=== PATIENT | female | born 1960 ===

== ENCOUNTER 2025-05-29 13:03 | Outpatient (AMB) | payer OTHER, SELFPAY ==
--- NOTE | 2025-05-29 13:32 | MHC.OFFVIS ---
Vital Signs 05/29/25 13:33 Height 5 ft 3 in Weight 166 lb 6 oz BMI 29.5 BP 96/60 Blood Pressure Location Rt brachial Pulse 70 Pulse Source Pulse Oximeter Pulse Oximetry (%) 97 Oxygen Delivery Method Room Air Intake Visit Reasons: ENP - Fatigue Intake Note: Patient presents [employer] fatigue. Sleepiness and fatigue, snoring at night. No HX of sleep study. Online Affiliate Marketing Manager Required: Yes Online Affiliate Marketing Manager Language: Electrical Cad Technician Services: Online Affiliate Marketing Manager Present Online Affiliate Marketing Manager Name: Foster [id number] Information Interpreted: non-clinical & clinical Accompanied by: Self / Same As Patient Allergies hydroxyzine Allergy (Unknown, Verified 05/29/25 13:36) Palpitations HPI Comments Details: 64 year old Arabic speaking female presents for evaluation of sleep apnea. Online Affiliate Marketing Manager on Ipad helps with history. She goes to sleep at 10pm and wakes up at 8am with several bathroom breaks. She snores loudly, she doesn't know if she stops breathing. Chronically fatigued in the mornings. She denies morning headaches, just in the last 2 days, she takes tylenol. She has bruxism and doesn't wear a mouth guard at night. She has TMJ pain and wakes up daily with pain. Denies RLS, however she has numbness bilaterally in her feet. Mood is stable. Memory is stable. Diet is stable. [facility] Medical History Left ureteral stone Pyelonephritis Food insecurity MDD (major depressive disorder) Anxiety Bruxism (teeth grinding) Type 2 diabetes mellitus associated with morbid obesity GERD (gastroesophageal reflux disease) Headache Mixed hyperlipidemia Essential hypertension Physical Exam Vital Signs: Last Vital Signs Pulse 70 05/29/25 13:33 BP 96/60 05/29/25 13:33 Pulse Ox 97 05/29/25 13:33 Oxygen Delivery Method Room Air 05/29/25 13:33 BMI result Body Mass Index 29.5 Const General: cooperative, comfortable and no acute distress Nutritional Appearance: average body habitus Orientation/consciousness: patient oriented x3 HEENT Face and sinus: Yes face symmetric Teeth and gingiva: other ([place] score 3) Eyes Pupils: Equal, round and reactive pupils present Resp Effort & Inspection: normal respiratory effort and able to speak in complete sentences Neuro Other: l. eye scar in pupil General: patient oriented x3 and moves all extremities Cranial nerves: Yes Facial sensation intact/muscles of mastication intact, Yes Equal, round and reactive pupils present, Yes Normal accommodation reflex present, Yes Midline tongue present, Yes Ability to bilaterally rotate head present and Yes Ability to bilaterally elevate shoulders present Gait exam (Neuro): Normal gait present Motor exam (neuro): 5/5 motor strength present throughout and Normal motor muscle tone present throughout Psych Appearance: grossly normal Mental Status: mental status grossly normal Thought process: Normal thought process present Thought content: Normal thought content present Assessment & Plan Assessment & Plan (1) Excessive daytime sleepiness: Code(s): G47.19 - Other hypersomnia Category: Medical (2) Bruxism, sleep-related: Code(s): G47.63 - Sleep related bruxism Category: Medical (3) Loud snoring: Code(s): R06.83 - Snoring Category: Medical Plan HST to r/o kamilah Fatigue Labs to r/o deficiencies. Orders: Orders Comprehensive Met. Panel Today G47.19 - Other hypersomnia Ferritin Today G47.19 - Other hypersomnia Magnesium Today G47.19 - Other hypersomnia TSH reflex Free T4 Today G47.19 - Other hypersomnia RT home sleep study Today G47.19 - Other hypersomnia Complete Blood Count no Diff Today G47.19 - Other hypersomnia Homocysteine Today G47.19 - Other hypersomnia, G47.9 - Sleep disorder, unspecified, R53.83 - Other fatigue Vitamin D 25-OH Total Today G47.19 - Other hypersomnia Vitamin B12 and Folate Today G47.19 - Other hypersomnia Methylmalonic Acid Today G47.19 - Other hypersomnia, G47.9 - Sleep disorder, unspecified, R53.83 - Other fatigue Patient Instructions: Sleep Hygiene provided: set a scheduled bedtime and wake time to help regulate the circadian rhythm and balance the release of pituitary hormones. Sleep in a dark room, temperatures below 68 degrees, and no devices n bed. Limit caffeinated products 6 hours prior to bed, and limit fluids 2-4 hours prior to bed. Gentle night yoga, diffusing essential oils, and playing soft music can be relaxing. Coding Level of Care Code New Pt Level 4 (26409) Diagnoses Excessive daytime sleepiness G47.19 Bruxism, sleep-related G47.63 Loud snoring R06.83 Time Spent (min) 30 Comment evaluation Sleep Questionnaire Difficulty falling asleep: No Difficulty staying asleep?: No Number of arousals: 3-4 Snoring: Yes Witnessed apneas: No Gasping arousals: No Nocturia: No GERD: No Vivid dreams: No Acting out dreams: No Abnormal behavior in sleep: No Abnormal movements in sleep: No Morning headaches: Yes Excessive daytime sleepiness: Yes Daytime naps: No Restless legs: Yes (numbness, ) Hallucinations: No Sleep paralysis: No Drop attacks: No Sleep Study: No CPAP: No
[2025-05-29 13:33] VITALS: BP 96/60; PULSE 70; O2SAT 97; BMI 29.5
--- OUTSIDE RECORDS SUMMARY | 2025-05-29 13:44 | XMS_ITS | Clinical Summary ---
Author Organization [address] [place] [address] Address [address] [place] [address] Phone Care Team Providers Care Candle Cutter Name Role Phone Adeline Goss Primary Care Provider Allergies Active Allergy Reactions Criticality Noted Date Comments Hydroxyzine Hcl Unknown Low 03/22/2025 unknown Medications escitalopram (LEXAPRO) 10 mg tablet Take 1 tablet (10 mg total) by mouth 1 (one) time each day. Active gemfibroziL (LOPID) 600 mg tablet Take 1 tablet (600 mg total) by mouth 2 (two) times a day before meals. Active metFORMIN (GLUCOPHAGE) 500 mg tablet Take 1 tablet (500 mg total) by mouth 2 (two) times a day with meals. Active icosapent ethyL (VASCEPA) 1 gram capsule Take 2 capsules (2 g total) by mouth 2 (two) times a day with meals. Active lisinopriL (PRINIVIL,ZESTR IL) 10 mg tablet Take 1 tablet (10 mg total) by mouth 1 (one) time each day. Active acetaminophen (TYLENOL) 500 mg tablet Take 2 tablets (1,000 mg total) by mouth every 6 (six) hours if needed for mild pain. Active oxyCODONE (ROXICODONE) 5 mg immediate release tabletIndicatio ns:S/P ureteral stent placement,Left ureteral stone Take 1 tablet (5 mg total) by mouth every 6 (six) hours if needed for severe pain or moderate pain. Max Daily Amount: 20 mg 15 tablet 5 Active pantoprazole (PROTONIX) 20 mg EC tablet Take 1 tablet (20 mg total) by mouth 1 (one) time each day before breakfast. Do not crush, chew, or split. Active Alcohol Prep Pads pads, medicated USE TO CLEANSE SKIN PRIOR TO CHECKING SUGAR Active diclofenac (VOLTAREN) 1 % topical gel APPLY TOPICALLY TO AFFECTED AREA FOUR TIMES DAILY Active QUEtiapine (SEROquel) 50 mg tablet Take 1 tablet (50 mg total) by mouth at bedtime. Active senna (SENOKOT) 8.6 mg tablet Take 1 tablet (8.6 mg total) by mouth 1 (one) time each day. Active simethicone (MYLICON) 125 mg chewable tablet Chew every 6 (six) hours if needed for flatulence. Active icosapent ethyL (Vascepa) 1 gram capsule Take 2 capsules (2 g total) by mouth 2 (two) times a day with meals. Active Active Problems Problem Noted Date Diagnosed Date S/P ureteral stent placement 03/12/2025 Acute pyelonephritis 03/11/2025 Assessment & Plan (03/11/2025 4:08 AM EDT): - Being hospitalized for acute left-sided pyelonephritis failing outpatient treatment program - 74-year-old woman with little known past medical history beyond renal calculus failing outpatient treatment programs is being hospitalized - EMS to the ED with worsening left flank pain in spite of completing prescribed programs of antibiotics - In the ED, initial vital signs largely unremarkable; BMI documented at 29.05 kg/m ; initial screening labs beginning from CBC with differential significant for peripheral leukocytosis with WBC 15.0, H/H10.3/31.5 and platelet count of 625; comprehensive metabolic panel significant for mild hyperglycemia 103, elevated BUN/creatinine 27/0.92 with an estimated GFR 71; urinalysis significant for small leukocyte, 300 g proteinuria, pyuria about 121, red blood 939, and negative nitrite; and negative qualitative beta-hCG; received initial broad-spectrum antibiotic in the ED; hospitalist was asked admit for UTI/pyelonephritis failing outpatient treatment programs - Would admit to hospital medicine for UTI/pyelonephritis; broaden spectrum of antibiotic coverage to involve Anti-Pseudomonas; request urine culture and blood culture as well as input of urology and infectious disease first thing in the morning for both Left ureteral stone 03/11/2025 Assessment & Plan (03/11/2025 4:08 AM EDT): - New left ureteral stone complicated by UTI/pyelonephritis; acute pain; and hematuria - Request urology consult first in the morning Acute left flank pain 03/11/2025 Assessment & Plan (03/11/2025 4:09 AM EDT): - Pain control using opioid regimen; monitor overall clinical response Urinary tract infection with hematuria, site uns pecified 03/11/2025 Assessment & Plan (03/11/2025 4:09 AM EDT): - Presents with left flank pain in spite of outpatient treatment programs with urinalysis suggestive of UTI significant for left flank pain and left costovertebral angle tenderness - Zosyn Encounters Date Type Department Care Team Description 05/09/2025 Lab Requisition [facility] - Main Lab [address] [facility] [place] [phone] Gertrude Grimaldo PA Calculus of ureter 04/23/2025 5:33 PM EDT - 04/23/2025 11:45 PM EDT Emergency [facility] Emergency [address] [place] [phone] Strain of lumbar region, initial encounter (Primary Dx) Discharge Disposition: Home or Self Care 04/05/2025 Telephone Gastroenterology - [place] [facility] [address] [facility] [address] [place] [phone] Kat Reveles MD special procedure 03/22/2025 9:03 AM EDT Anesthesia Event [facility] Main OR [address] [place] [phone] Kaylah Nelson MD 03/22/2025 9:00 AM EDT - 03/22/2025 10:30 AM EDT Surgery [facility] Main OR [address] [place] [phone] Garett Theodore MD CYSTOSCOPY W/ URETEROSCOPY, LASER LITHOTRIPSY W/ STENT [14411 (CPT )] 03/22/2025 6:34 AM EDT - 03/22/2025 11:24 AM EDT Hospital Encounter [facility] Main OR [address] [place] [address] Garett Theodore MD Discharge Disposition: Home or Self Care 03/10/2025 5:42 PM EDT - 03/12/2025 6:37 PM EDT Hospital Encounter [facility] Medical Surgical Unit [address] [place] [address] Ender Corral MD Zipagan, James T, MD S/P ureteral stent placement (Primary Dx); Urinary tract infection with hematuria, site unspecified; Nephrolithiasis; Left ureteral stone Discharge Disposition: Home or Self Care 03/09/2025 Telephone Gastroenterology - [place] [facility] [address] [facility] [address] [place] [address] Kat Reveles MD information needed from Last 3 Months Surgical History Surgery Date Site/Laterality Comments OTHER SURGICAL HISTORY SECTION, LOW TRANSVERSE KIDNEY STONE SURGERY Medical History Medical History Date Comments Hypertension Hyperlipidemia Diabetes mellitus ([facility] V24, [facility] V28) Chronic kidney disease kidney [facility] Anemia hx of Anxiety Depression Neuromuscular disorder ([facility] V24, [facility] V28 ) musclespasms Arthritis Joint pain Social History Tobacco Use Types Packs/Day Years Used Date Smoking Tobacco: Never Smokeless Tobacco: Never Tobacco Cessation:Counseling Given: Not Answered Interpersonal Safety Answer Date Record ed Physical Abuse 03/22/2025 Verbal Abuse 03/22/2025 Comments Unknown Sex and Gender Information Value Date Recorded Sex Assigned at Female 03/17/2025 12:57 PM EDT Legal Sex Female 3:31 PM EST Gender Identity Not on file Sexual Orientation Not on file Obstetrics History Last Filed Vital Signs Vital Sign Reading Time Taken Comments Blood Pressure 146/76 04/23/2025 10:05 PM EDT Pulse 47 04/23/2025 10:05 PM EDT Temperature 37.1 C (98.7 F) 04/23/2025 5:23 PM EDT Respiratory Rate 18 04/23/2025 10:05 PM EDT Oxygen Saturation 100% 04/23/2025 10:05 PM EDT Inhaled Oxygen Concentration - - Weight 74.4 kg (164 lb) 04/23/2025 5:23 PM EDT Height 160 cm (5' 3 ) 04/23/2025 5:23 PM EDT Body Mass Index 29.05 04/23/2025 5:23 PM EDT Plan of Treatment Upcoming Encounters Date Type Department Care Team (Late st Contact Info) Description 07/12/2025 8:30 AM EDT Appointment [facility] Endoscopy [address] [place] [phone] Kat Reveles MD [address] [address] Health Maintenance Due Date Last Done Comments Breast Cancer Screening 1962 Diabetes: Annual Foot Exam 1972 Diabetes: Annual Retina Eye Exam 1972 Cervical Cancer Screening: Pap Smear 1983 COVID-19 Vaccine (2 - Edward risk series) 03/11/2021 02/11/2021 Zoster Vaccines (2 of 2) 07/03/2023 05/08/2023 Depression Screening 11/02/2024 Colorectal Cancer Screening: Colonoscopy 03/09/2025 Diabetes: Annual Urine Albumin-Creatinine Ratio (uACR) 03/09/2025 05/08/2023, 11/26/2020 Hepatitis C Screening 03/09/2025 Medicare Annual Wellness Visit 03/09/2025 Social Influencers of Health Screening 03/09/2025 Influenza Vaccine (#1) 2025 Diabetes: Blood Sugar Control Test (HGBA1C) 09/11/2025 03/11/2025, 02/27/2025 Diabetes: Annual GFR (Glomerular Filtration Rate) 04/23/2026 04/23/2025, 03/11/2025, 03/10/2025, Additional history exists Hypertension/CHF/CAD Annual BMP Blood Test 04/23/2026 04/23/2025, 03/11/2025, 03/10/2025, Additional history exists DTaP,Tdap,and Td Vaccines (2 - Td or Tdap) 02/01/2029 02/01/2019 Cholesterol Screening (Lipid Panel) 02/27/2030 02/27/2025, 06/10/2021, 11/28/2020, Additional history exists RSV Immunization Adult Patients (1 - 1-dose 75+ series) 2037 HIV Screening Completed 08/28/2017 Pneumococcal Vaccine: 50+ Years Completed 05/08/2023 HIB Vaccines Aged Out No longer eligi ble based on patient's age to complete this topic HPV Vaccines Aged Out No longer eligi ble based on patient's age to complete this topic Hepatitis A Vaccines Aged Out No long er eligible based on patient's age to complete this topic Hepatitis B Vaccines Aged Out No long er eligible based on patient's age to complete this topic IPV Vaccines Aged Out No longer eligi ble based on patient's age to complete this topic MMR Vaccines Aged Out No longer eligi ble based on patient's age to complete this topic Meningococcal ACWY Vaccine Aged Out N o longer eligible based on patient's age to complete this topic Meningococcal B Vaccine Aged Out No l onger eligible based on patient's age to complete this topic RSV Immunization Patients Under 20 months Aged Out No longer eligible based on patient's age to complete this topic Varicella Vaccines Aged Out No longer eligible based on patient's age to complete this topic Medical Devices Implanted Type Area Manager Infrastructure Device Identifier Shelf Expiration Date Model / Serial / Lot Stent Uret [id number] Contr [employer] - Sn/A - [id number] Implanted:Qty: 1 on 03/22/2025 by Garett Theodore MD at [facility] Stents Left: Ureter [employer] GY [id number] 11/07/2027 [id number] 60 / N/A / [id number] Procedures Procedure Name Priority Date/Time Associated Diagnosis Comments PARATHYROID HORMONE INTACT Routine 05/09/2025 9:57 AM EDT Calculus of ureter HAY URINE CULTURE TUBE STAT 04/23/2025 7:58 PM EDT URINALYSIS WITH REFLEX MICROSCOPIC AND CULTURE STAT 04/23/2025 7:58 PM EDT URINALYSIS WITH REFLEX MICROSCOPIC AND CULTURE STAT 04/23/2025 7:58 PM EDT CULTURE URINE STAT 04/23/2025 7:58 PM EDT CBC WITH AUTO DIFFERENTIAL STAT 04/23/2025 5:23 PM EDT LIPASE STAT 04/23/2025 5:23 PM EDT COMPREHENSIVE METABOLIC PANEL STAT 04/23/2025 5:23 PM EDT CBC AND DIFFERENTIAL STAT 04/23/2025 5:23 PM EDT XR UROGRAM RETROGRADE Routine 03/22/2025 9:31 AM EDT TH AN LMA(NO CHARGE) Routine 03/22/2025 9:16 AM EDT [place] CYSTO W URETEROSCOPY/PYELOSC OPY W LITHOTRIPSY INCL INDWELLING URTRL STNT 03/22/2025 9:03 AM EDT Calculus of kidney Case Notes C-ARM, HOLMIUM Special Needs 03/[address] Ewelina Swenson via phone w/ JT POCT GLUCOSE BLOOD Routine 03/22/2025 7: 02 AM EDT POCT GLUCOSE BLOOD Routine 03/12/2025 4: 18 PM EDT POCT GLUCOSE BLOOD Routine 03/12/2025 4: 13 PM EDT POCT GLUCOSE BLOOD Routine 03/12/2025 11 :10 AM EDT POCT GLUCOSE BLOOD Routine 03/12/2025 7: 55 AM EDT POCT GLUCOSE BLOOD Routine 03/11/2025 5: 58 PM EDT POCT GLUCOSE BLOOD Routine 03/11/2025 10 :28 AM EDT HEMOGLOBIN A1C Add-On 03/11/2025 5:30 AM EDT CBC WITH AUTO DIFFERENTIAL Routine 03/11/2025 5:30 AM EDT CBC AND DIFFERENTIAL Routine 03/11/2025 5:30 AM EDT BASIC METABOLIC PANEL Routine 03/11/2025 5:[address] ABDOMEN PELVIS WO CONTRAST STAT 03/10/2025 10:20 PM EDT HCG, SERUM, QUALITATIVE STAT Add-on 03/10/2025 7:46 PM EDT CBC WITH AUTO DIFFERENTIAL STAT 03/10/2025 7:46 PM EDT LACTATE, WITH REFLEX STAT 03/10/2025 7:46 PM EDT COMPREHENSIVE METABOLIC PANEL STAT 03/10/2025 7:46 PM EDT CBC AND DIFFERENTIAL STAT 03/10/2025 7:46 PM EDT HAY URINE CULTURE TUBE STAT 03/10/2025 7:43 PM EDT URINALYSIS WITH REFLEX MICROSCOPIC AND CULTURE STAT 03/10/2025 7:43 PM EDT URINALYSIS WITH REFLEX MICROSCOPIC AND CULTURE STAT 03/10/2025 7:43 PM EDT CULTURE URINE STAT 03/10/2025 7:43 PM EDT from Last 3 Months Results * Parathyroid hormone intact (05/09/2025 9:57 AM EDT) [facility] PTH 23.5 18.5 - 88.0 pcg/mL LAB CHEMISTRY METHOD 05/09/2025 2:14 PM EDT [facility] Blood Venous blood specimen / Unknown 05/09/2025 9:57 AM EDT 05/09/2025 1:34 PM EDT us Gertrude BURTON LAB BLOOD ORDERABLES Final Res ult [facility] [address] [place] [address], [place] [phone] * (ABNORMAL) Urinalysis with reflex microscopic and culture (04/23/2025 7:58 PM EDT) Only the most recent of2 resultswithin the time period is included. Specific [place] Urine 1.016 1.003 - 1.030 LAB URINALYSIS - AUTOMATED METHOD 04/23/2025 9:28 PM EDT [facility] pH, Urine 6.0 5.0 - 8.0 pH LAB URINALYSIS - AUTOMATED METHOD 04/23/2025 9:28 PM [facility] Leukocytes, Urine Trace(A) Negative LAB URINALYSIS - AUTOMATED METHOD 04/23/2025 9:28 PM [facility] Nitrite, Urine Negative Negative LAB URINALYSIS - AUTOMATED METHOD 04/23/2025 9:28 PM [facility] Protein, Urine Negative <=Trace mg/dL LAB URINALYSIS - AUTOMATED METHOD 04/23/2025 9:28 PM [facility] Glucose, Urine Negative Negative mg/dL LAB URINALYSIS - AUTOMATED METHOD 04/23/2025 9:28 PM [facility] Ketones, Urine Negative Negative mg/dL LAB URINALYSIS - AUTOMATED METHOD 04/23/2025 9:28 PM [facility] Urobilinogen, Urine 0.2 0.2 - 1.0 mg/dL LAB URINALYSIS - AUTOMATED METHOD 04/23/2025 9:28 PM [facility] Bilirubin, Urine Negative Negative LAB URINALYSIS - AUTOMATED METHOD 04/23/2025 9:28 PM [facility] Blood, Urine Negative Negative LAB URINALYSIS - AUTOMATED METHOD 04/23/2025 9:28 PM EDT [facility] RBC, Urine 0.8 0 - 4 /HPF LAB URINALYSIS - AUTOMATED METHOD 04/23/2025 9:28 PM EDT [facility] WBC, Urine 0.8 0 - 4 /HPF LAB URINALYSIS - AUTOMATED METHOD 04/23/2025 9:28 PM EDT [facility] Squamous Epithelial, Urine 18 0 - 60 /LPF LAB URINALYSIS - AUTOMATED METHOD 04/23/2025 9:28 PM EDT [facility] Bacteria, Urine Negative Negative /HPF LAB URINALYSIS - AUTOMATED METHOD 04/23/2025 9:28 PM EDT [facility] Hyaline Casts, Urine 0.8 0 - 3 /LPF LAB URINALYSIS - AUTOMATED METHOD 04/23/2025 9:28 PM EDT [facility] Urine Urine specimen obtained by clean catch procedure / Unknown Non-blood Collection / Unknown 04/23/2025 7:58 PM EDT 04/23/2025 9:12 PM EDT us Anibal BURTON LAB URINE ORDERABLES Final Re sult [facility] [address] [place] [address], [place] [phone] * Hay urine culture tube (04/23/2025 7:58 PM EDT) Only the most recent of2 resultswithin the time period is included. Extra Tube Hold for add-ons. 04/23/2025 11:01 PM EDT [facility] Comment:Auto resulted. Urine Urine specimen obtained by clean catch procedure / Unknown Non-blood Collection / Unknown 04/23/2025 7:58 PM EDT 04/23/2025 9:12 PM EDT us Anibal BURTON LAB URINE ORDERABLES Final Re sult Performing Organization Address City/[facility]/ZIP Co de Phone Number [facility] [address] [place] [address], * Culture urine (04/23/2025 7:58 PM EDT) Only the most recent of2 resultswithin the time period is included. [facility] Culture, Urine <10,000 cfu/mL Mixed bacterial farheen 04/24/2025 1:00 PM EDT [facility] Urine Urine specimen obtained by clean catch procedure / Unknown Non-blood Collection / Unknown 04/23/2025 7:58 PM EDT 04/23/2025 9:27 PM EDT Anibal BURTON LAB MICROBIOLOGY - GENERAL OR DERABLES Final Result Performing Organization Address [facility]/ZIP Co de Phone Number [facility] [address] [place] [address], [place] [phone] * (ABNORMAL) CBC auto differential (04/23/2025 5:23 PM EDT) Only the most recent of3 resultswithin the time period is included. [facility] WBC 9.4 4.8 - 10.8 K/mcL LAB HEMETOLOGY METHOD 04/23/2025 6:03 PM EDT [facility] RBC 3.80 3.80 - 4.80 M/mcL LAB HEMETOLOGY METHOD 04/23/2025 6:03 PM EDT [facility] Hemoglobin 10.8(L) 11.5 - 16.0 g/dL LAB HEMETOLOGY METHOD 04/23/2025 6:03 PM EDT [facility] Hematocrit 34.2(L) 35.0 - 47.0 % LAB HEMETOLOGY METHOD 04/23/2025 6:03 PM EDT [facility] MCV 90.7 79.0 - 98.0 FL LAB HEMETOLOGY METHOD 04/23/2025 6:03 PM EDT [facility] MCH 28.6 27.0 - 32.0 pcg LAB HEMETOLOGY METHOD 04/23/2025 6:[facility] MCHC 31.6(L) 32.0 - 37.0 g/dL LAB HEMETOLOGY METHOD 04/23/2025 6:03 [facility] RDW 13.7 11.0 - 15.0 % LAB HEMETOLOGY METHOD 04/23/2025 6:03 [facility] Platelets 537(H) 130 - 400 K/mcL LAB HEMETOLOGY METHOD 04/23/2025 6:03 [facility] MPV 10.2 7.0 - 11.0 FL LAB HEMETOLOGY METHOD 04/23/2025 6:03 PM [facility] NRBC 0.0 <1.0 % LAB HEMETOLOGY METHOD 04/23/2025 6:03 PM [facility] NRBC Absolute 0.00 <0.10 K/mcL LAB HEMETOLOGY METHOD 04/23/2025 6:03 PM [facility] Neutrophils Relative 47.8 % LAB HEMETOLOGY METHOD 04/23/2025 6:03 PM [facility] Lymphocytes Relative 41.7 % LAB HEMETOLOGY METHOD 04/23/2025 6:03 PM [facility] Monocytes Relative 9.3 % LAB HEMETOLOGY METHOD 04/23/2025 6:03 [facility] Eosinophils Relative 0.6 % LAB HEMETOLOGY METHOD 04/23/2025 6:03 PM [facility] Basophils Relative 0.3 % LAB HEMETOLOGY METHOD 04/23/2025 6:03 PM [facility] Immature Granulocytes Relative 0.3 % LAB HEMETOLOGY METHOD 04/23/2025 6:03 PM EDT [facility] Neutrophils Absolute 4.48 1.50 - 7.00 K/mcL LAB HEMETOLOGY METHOD 04/23/2025 6:03 PM EDT [facility] Lymphocytes Absolute 3.91 1.00 - 5.00 K/mcL LAB HEMETOLOGY METHOD 04/23/2025 6:03 PM EDT [facility] Monocytes Absolute 0.87 0.20 - 1.00 K/mcL LAB HEMETOLOGY METHOD 04/23/2025 6:03 PM EDT [facility] Eosinophils Absolute 0.06 0.00 - 0.50 K/mcL LAB HEMETOLOGY METHOD 04/23/2025 6:03 PM EDT [facility] Basophils Absolute 0.03 0.00 - 0.20 K/mcL LAB HEMETOLOGY METHOD 04/23/2025 6:03 PM EDT [facility] Immature Granulocytes Absolute 0.03 0.00 - 0.03 K/mcL LAB HEMETOLOGY METHOD 04/23/2025 6:03 PM EDT [facility] Blood Venous blood specimen / Unknown Venipuncture / Unknown 04/23/2025 5:23 PM EDT 04/23/2025 5:57 PM EDT us Scott Ruiz DO LAB BLOOD ORDERABLES Final Res ult [facility] [address] [place] [address], * Lipase (04/23/2025 5:23 PM EDT) Lipase 46 13 - 75 unit/L LAB CHEMISTRY METHOD 04/23/2025 6:34 PM EDT [facility] Blood Venous blood specimen / Unknown Venipuncture / Unknown 04/23/2025 5:23 PM EDT 04/23/2025 5:57 PM EDT us Scott Ruiz DO LAB BLOOD ORDERABLES Final Res ult [facility] [address] [place] [address], [place] [phone] * (ABNORMAL) Comprehensive metabolic panel (04/23/2025 5:23 PM EDT) Only the most recent of2 resultswithin the time period is included. Sodium 136 133 - 145 mmol/L LAB CHEMISTRY METHOD 04/23/2025 6:34 PM EDT [facility] Potassium 4.7 3.5 - 5.5 mmol/L LAB CHEMISTRY METHOD 04/23/2025 6:34 PM [facility] Chloride 104 96 - 110 mmol/L LAB CHEMISTRY METHOD 04/23/2025 6:34 PM [facility] CO2 27 21 - 32 mmol/L LAB CHEMISTRY METHOD 04/23/2025 6:34 PM T [facility] Anion Gap 5 3 - 11 LAB CHEMISTRY METHOD 04/23/2025 6:34 PM [facility] Glucose 100 70 - 100 mg/dL LAB CHEMISTRY METHOD 04/23/2025 6:34 PM [facility] BUN 21 5 - 25 mg/dL LAB CHEMISTRY METHOD 04/23/2025 6:34 PM [facility] Creatinine 0.96 0.50 - 1.10 mg/dL LAB CHEMISTRY METHOD 04/23/2025 6:34 PM [facility] eGFR 67 >=60 mL/min/1. 73m2 LAB CHEMISTRY METHOD 04/23/2025 6:34 PM [facility] Comment:Calculation based on the Chronic Kidney Disease Epidemiology Collaboration (CKD-EPI) equation refit without adjustment for race. BUN/Creatinine Ratio 21.9 LAB CHEMISTRY METHOD 04/23/2025 6:34 PM T [facility] Calcium 10.6(H) 8.5 - 10.5 mg/dL LAB CHEMISTRY METHOD 04/23/2025 6:34 PM EDT [facility] AST (SGOT) 22 10 - 42 unit/L LAB CHEMISTRY METHOD 04/23/2025 6:34 PM T [facility] ALT (SGPT) 39 10 - 60 unit/L LAB CHEMISTRY METHOD 04/23/2025 6:34 PM EDT [facility] Alkaline Phosphatase 82 42 - 121 unit/L LAB CHEMISTRY METHOD 04/23/2025 6:34 PM EDT [facility] Total Protein 8.2(H) 6.0 - 8.0 g/dL LAB CHEMISTRY METHOD 04/23/2025 6:34 PM [facility] Albumin 4.2 3.2 - 5.0 g/dL LAB CHEMISTRY METHOD 04/23/2025 6:34 PM [facility] Total Bilirubin 0.3 0.0 - 1.4 mg/dL LAB CHEMISTRY METHOD 04/23/2025 6:34 PM EDT [facility] Blood Venous blood specimen / Unknown Venipuncture / Unknown 04/23/2025 5:23 PM EDT 04/23/2025 5:57 PM EDT Scott Ruiz DO LAB BLOOD ORDERABLES Final Res ult [facility] [address] [place] [address], [place] [phone] * XR Urogram Retrograde (03/22/2025 9:31 AM EDT) Anatomical Region Laterality Modality Body Radio Fluoroscop y 03/23/2025 6:43 PM EDT Impressions 03/23/2025 6:44 PM EDT Left-sided stent exchange. -------- FINAL REPORT -------- Dictated By: Mitchell Clemens Dictated Date: 03/23/2025 18:43 ET Assigned Physician: Mitchell Clemens Reviewed and Electronically Signed By: Mitchell Clemens Signed Date: 03/23/2025 18:44 ET Workstation ID: [id number] Transcribed By: Self Edit Transcribed Date: 03/23/2025 18:43 ET Narrative 03/23/2025 6:44 PM EDT INDICATION: pain FINDINGS: Multiple images obtained from endourological procedure performed in the operating room by the urologist. No immediate reading requested. COMPARISON: CT scan of the abdomen and pelvis from March 10, 2025 reviewed. FINDINGS: Images demonstrate stent removal. No significant hydronephrosis. Final images demonstrate well-positioned ureteral stent. Cumulative dose: 2.91 mGy Procedure Note Mitchell Clemens MD - 03/23/2025 INDICATION: pain FINDINGS: Multiple images obtained from endourological procedure performedin the operating room by the urologist. No immediate reading requested. COMPARISON: CT scan of the abdomen and pelvis from March 10, 2025 reviewed. FINDINGS: Images demonstrate stent removal. No significant hydronephrosis. Finalimages demonstrate well-positioned ureteral stent. Cumulative dose: 2.91 mGy IMPRESSION: Left-sided stent exchange. -------- FINAL REPORT -------- Dictated By: Mitchell Clemens Dictated Date: 03/23/2025 18:43 ET Assigned Physician: Mitchell Clemens Reviewed and Electronically Signed By: Mitchell Clemens Signed Date: 03/23/2025 18:44 ET Workstation ID: [id number] Transcribed By: Self Edit Transcribed Date: 03/23/2025 18:43 ET Garett Theodore MD IMG FLUOROSCOPY PROCEDURES Final Result * TH AN LMA(NO CHARGE) (03/22/2025 9:16 AM EDT) Nelly Echols CRNA - 03/22/2025 9:16 AM EDT Nelly Stroud CRNA 03/22/2025 9:17 AM General Information and Staff Patient location during procedure: OR Performed by: Nelly Stroud CRNA Authorized by: Kaylah Nelson MD Intubation Airway not difficult Urgency: elective Final Airway Details Number of attempts at approach: 1 Ventilation between attempts: none Number of other approaches attempted: 0 LMA Size: 4 LMA Type: Classic LMA Seal Pressure: Final airway type: LMA Indications and Patient Condition Indications for airway management: anesthesia Spontaneous ventilation: present Sedation level: Yes Preoxygenated: yes Soft Tissue Damage: No Dentition Unchanged: Yes Patient position: neutral MILS not maintained throughout Mask difficulty assessment: 0 - not attempted Start Time: 03/22/2025 9:12 AMStop Time: 03/22/2025 9:12 AM us Kaylah Nelson MD ANESTHESIA ORDERABLES Fin al Result * (ABNORMAL) POCT Glucose, blood (03/22/2025 7:02 AM EDT) Only the most recent of7 resultswithin the time period is included. Glucose POCT 111(H) 70 - 100 mg/dL 03/22/2025 7:03 AM EDT [facility] Blood Capillary blood specimen / Unknown 03/22/2025 7:02 AM EDT 03/22/2025 7:04 AM EDT us Garett Theodore MD LAB POINT OF CARE TE ST DOCKED DEVICE UNSOLICITED RESULTS Final Result [facility] [address] [place] [address], [place] [phone] * Hemoglobin A1c (03/11/2025 5:30 AM EDT) Hemoglobin A1C 6.4 % 03/16/2025 3:21 PM EDT [facility] Mean Bld Glu Estim. 137 mg/dL 03/16/2025 3:21 PM EDT [facility] Blood Venous blood specimen / Unknown Venipuncture / Unknown 03/11/2025 5:30 AM EDT 03/11/2025 5:44 AM EDT Narrative [facility] - 03/16/2025 3:21 PM EDT Sent out to [facility] @03/13/2025 us Wally Jiang MD LAB BLOOD ORDERABLES Final Re sult [facility] [address] [place] [address], [place] [phone] * (ABNORMAL) Basic metabolic panel (03/11/2025 5:30 AM EDT) Sodium 138 133 - 145 mmol/L LAB CHEMISTRY METHOD 03/11/2025 6:07 AM [facility] Potassium 4.2 3.5 - 5.5 mmol/L LAB CHEMISTRY METHOD 03/11/2025 6:07 AM [facility] Chloride 107 96 - 110 mmol/L LAB CHEMISTRY METHOD 03/11/2025 6:07 AM [facility] CO2 25 21 - 32 mmol/L LAB CHEMISTRY METHOD 03/11/2025 6:07 AM [facility] Anion Gap 6 3 - 11 LAB CHEMISTRY METHOD 03/11/2025 6:07 AM [facility] Glucose 118(H) 70 - 100 mg/dL LAB CHEMISTRY METHOD 03/11/2025 6:07 AM [facility] BUN 24 5 - 25 mg/dL LAB CHEMISTRY METHOD 03/11/2025 6:07 AM [facility] Creatinine 0.79 0.50 - 1.10 mg/dL LAB CHEMISTRY METHOD 03/11/2025 6:07 AM [facility] eGFR 85 >=60 mL/min/1. 73m2 LAB CHEMISTRY METHOD 03/11/2025 6:07 AM [facility] Comment:Calculation based on the Chronic Kidney Disease Epidemiology Collaboration (CKD-EPI) equation refit without adjustment for race. BUN/Creatinine Ratio 30.4 LAB CHEMISTRY METHOD 03/11/2025 6:07 AM [facility] Calcium 9.2 8.5 - 10.5 mg/dL LAB CHEMISTRY METHOD 03/11/2025 6:07 AM EDT [facility] Blood Venous blood specimen / Unknown Venipuncture / Unknown 03/11/2025 5:30 AM EDT 03/11/2025 5:44 AM EDT us Ender Corral MD LAB BLOOD ORDERABLES Anat james Result [facility] [address] [place] [address], [place] [phone] * CT Abdomen Pelvis wo Contrast (03/10/2025 10:20 PM EDT) Anatomical Region Laterality Modality Body Computed Tomogra phy 03/10/2025 11:4 6 PM EDT Impressions 03/10/2025 11:46 PM EDT Double J left nephroureteral stent in satisfactory position. 2 mm ureteral stone along the lateral stent margin 3.7 cm superior to the ureterovesical junction. Moderate left hydronephrosis with perinephric stranding. Fatty liver. Gallstones without other findings of cholecystitis. Small fibroid. This document has been electronically signed by: Karly Borrego MD on 03/10/2025 23:46:36 Narrative 03/10/2025 11:46 PM EDT INDICATION: Known left-sided nephrolithiasis with stent, worsening symptoms CT abdomen and pelvis without IV contrast. Comparison: None Findings: No free air. No solid liver mass. Fatty infiltration. Several calcified gallstones. No clinically significant biliary ductal dilation. No splenomegaly or suspicious splenic lesions. No solid or cystic pancreatic mass. No pancreatic ductal dilation. No acute inflammatory changes. Adrenal glands without nodule. No suspicious renal mass. Double J left nephroureteral stent in satisfactory position. Moderate left hydronephrosis with perinephric stranding. 2 mm ureteral stone along the lateral stent margin 3.7 cm superior to the ureterovesical junction. No right hydronephrosis. Bladder without acute pathology. Dense colonic fecal retention without obstruction. Sigmoid diverticulosis without diverticulitis. No evidence for acute appendicitis. No adenopathy. No abdominal aortic aneurysm. No suspicious pelvic masses. 1.2 x 1.1 cm calcified fibroid. No acute soft tissue pathology. No acute osseous pathology. Procedure Note Karly Borrego MD - 03/10/2025 INDICATION: Known left-sided nephrolithiasis with stent, worseningsymptoms CT abdomen and pelvis without IV contrast. Comparison: None Findings: No free air. No solid liver mass. Fatty infiltration. Several calcified gallstones. No clinically significant biliary ductal dilation. No splenomegaly or suspicious splenic lesions. No solid or cystic pancreatic mass. No pancreatic ductal dilation. No acute inflammatory changes. Adrenal glands without nodule. No suspicious renal mass. Double J left nephroureteral stent in satisfactory position. Moderate left hydronephrosis with perinephric stranding. 2 mm ureteral stone along the lateral stent margin 3.7 cm superior to the ureterovesical junction. No right hydronephrosis. Bladder without acute pathology. Dense colonic fecal retention without obstruction. Sigmoiddiverticulosis without diverticulitis. No evidence for acute appendicitis. No adenopathy. No abdominal aortic aneurysm. No suspicious pelvic masses. 1.2 x 1.1 cm calcified fibroid. No acute soft tissue pathology. No acute osseous pathology. IMPRESSION: Double J left nephroureteral stent in satisfactory position. 2 mm ureteral stone along the lateral stent margin 3.7 cm superior tothe ureterovesical junction. Moderate left hydronephrosis with perinephric stranding. Fatty liver. Gallstones without other findings of cholecystitis. Small fibroid. This document has been electronically signed by: Karly Borrego MD on 03/10/2025 23:46:36 Shadia [facility] [place] [place] CT PROCEDURES Final Result * Lactate, with reflex (03/10/2025 7:46 PM EDT) LACTIC ACID 0.8 0.4 - 2.0 mmol/L LAB CHEMISTRY METHOD 03/10/2025 8:16 PM EDT [facility] Blood Venous blood specimen / Unknown Venipuncture / Unknown 03/10/2025 7:46 PM EDT 03/10/2025 7:50 PM EDT [facility] LAB BLOOD ORDERABLES Final Res ult [facility] [address] [place] [address], [place] [phone] * hCG, serum, qualitative (03/10/2025 7:46 PM EDT) hCG Qual Negative Negative 03/10/2025 9:01 PM EDT [facility] Blood Venous blood specimen / Unknown Venipuncture / Unknown 03/10/2025 7:46 PM EDT 03/10/2025 7:50 PM EDT [facility] LAB BLOOD ORDERABLES Final Res ult Performing Organization Address City/[facility]/ZIP Co de Phone Number [facility] [address] [place] [address], [place] [phone] from Last 3 Months Insurance [facility] MEDICARE Member Subscriber Plan / Payer (Ef fective 2018-Present) Name:SAVITA TERRY Relation to Subscriber:Self Name:Savita Terry Payer ID:[id number] Group ID:[id number] Type:Not on file Address: [address] [facility] [place] [phone] Advance Directives * Full Code - Default (Latest Code Status on File) Date Activated Date Inactivated Comments 03/11/2025 4:07 AM 03/12/2025 8:43 PM This is orde r is used when code status has not been discussed with the patient, or code status is otherwise unknown/unconfirmed To update the patient's code status, place a code status order. Do not modify or discontinue any currently active code status orders. Care Teams Candle Cutter Relationship Specialty Start Date End Date Adeline Goss PA [address] [place] [address] PCP - General 04/05/25
--- OUTSIDE RECORDS SUMMARY | 2025-05-29 13:44 | XMS_ITS | Encounter Summary ---
Author Organization [facility] Address [address] [place] [address] Care Team Providers Care Beer Maker Name Role Phone Adeline Goss PA-C Primary Care Provider [phone] Encounter Details Date Type Department Care Team (Late st Contact Info) Description 12/01/2023 Interim Notes [facility] [address] [place] [phone] Timothy FranciscoANASCO, [place] [address] [place], [place] [phone] Social History Tobacco Use Types Packs/Day Years Used Date Smoking Tobacco: Never Smokeless Tobacco: Never Alcohol Use Standard Drinks/Week Comments No 0 (1 standard drink = 0.6 oz pur e alcohol) Social Connections Answer Date Recorded Connectedness 1 11/11/2023 Financial Resource Strain Answer Date R ecorded Financial Resource Strain 2 2023 Stress Answer Date Recorded Stress 2 11/11/2023 Physical Activity Answer Date Recorded Physical Activity 0 08/06/2023 Food Insecurity Answer Date Recorded Food 2 11/11/2023 Transportation Needs Answer Date Record ed Transportation 2 11/11/2023 Housing Stability Answer Date Recorded Housing 2 11/11/2023 Safety and Environment Answer Date Mookie rded Safety 0 08/06/2023 Utilities Answer Date Recorded Utilities 2 11/11/2023 Employment Answer Date Recorded Stress 0 08/06/2023 Comments No Sex and Gender Information Value Date Recorded Sex Assigned at Female 08/28/2017 8:31 PM PDT Legal Sex Female 6:07 AM PDT Gender Identity Female 08/28/2017 8:31 PM PDT Sexual Orientation Straight 08/28/2017 8: 31 PM PDT COVID-19 Exposure Response Date Recorded In the last 10 days, have yo u been in contact with someone who was confirmed or suspected to have Coronavirus/COVID-19? No / Unsure 12/02/2023 9:38 AM EST documented as of this encounter Plan of Treatment Upcoming Encounters Date Type Department Care Team (Late st Contact Info) Description 06/15/2025 9:00 AM EDT [facility] Visits [address] [phone] Kelly Mendes, TRACK INSPECTOR [address] [place] [phone] 07/06/2025 2:20 PM EDT BH[facility] Visits [address] [phone] Andrei Jarrett FNP [address] [place] [phone] Moy Douglas [address] [place] [phone] 08/01/2025 10:20 AM EDT Office Visit [address] [phone] Cee Allen [address] [place] [phone] documented as of this encounter Visit Diagnoses Not on filedocumented in this encounter Additional Health Concerns Assessment Noted Time PHQ-9 Depression Total Score: 8 11/11/19 24 9:42 AM PST documented as of this encounter Care Teams Beer Maker Relationship Specialty Start Date End Date Adeline Goss PA-C [address] [place] [phone] PCP - General Internal Medicine 06/26/21 documented as of this encounter
== END 2025-05-29 14:55 | disposition home or self-care (01) ==
PROVIDERS: PCP Registered Nurse; Visit Provider Physician Assistant Medical
DX: G47.19 Other hypersomnia (principal); G47.63 Sleep related bruxism; R06.83 Snoring
CPT/HCPCS: 99204

== ENCOUNTER → 2025-05-29 13:03 | Outpatient (BNVA) | payer OTHER, SELFPAY | PROVIDERS: PCP Registered Nurse; Visit Provider Physician Assistant Medical | DX: G47.19 Other hypersomnia (principal); G47.63 Sleep related bruxism; R06.83 Snoring | CPT/HCPCS: 99202 ==